=== PATIENT | male | born 1945 | race Caucasian/White ===

== ENCOUNTER → 2018-06-06 | Outpatient (CLI) | payer MEDICARE, BC ==
[2015-07-03 00:34] VITALS: BP 163/103
[~2018-06-06] MED LIST: ADVIL LIQUI-GE200 MG PO; ALEVE220 M1 PO; ASPIRIN E.C. 8181 MG PO; FLONASE ALLERG9.9 ML NS; NEXIUM2.5 MG/Pac PO
== END ==
LOC: PT 12:58 → EDSTATUS 13:37
DX: Z01.818 Encounter for other preprocedural examination (principal); M25.861 Other specified joint disorders, right knee

== ENCOUNTER 2018-09-05 11:00 | Outpatient (RCR) | payer MEDICARE, BC ==
[2015-07-03 00:34] VITALS: BP 163/103
== END 2018-09-05 11:30 | disposition home or self-care (01) ==
LOC: PT 11:00
DX: Z47.1 Aftercare following joint replacement surgery (principal); Z96.651 Presence of right artificial knee joint